=== PATIENT | male | born 1985 | race Caucasian/White ===

== ENCOUNTER 2017-06-02 21:25 | Emergency (ER) | payer OTHER ==
[~2017-06-02] VITALS: Ht 162.6 cm; Wt 89.5 kg
[2017-06-02 21:30] VITALS: Ht 162.6 cm; Wt 89.5 kg
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
--- NOTE | 2017-06-03 00:55 | RADRPT ---
PROCEDURE: Left hand x-ray CLINICAL INDICATION: Left hand pain. Reference marker is directed towards the distal left ulna. TECHNIQUE: AP, lateral and oblique views of the left hand were obtained. COMPARISON: None FINDINGS: There is normal mineralization. No acute fracture or dislocation is seen. There are no significant degenerative changes. There is no significant soft tissue swelling. IMPRESSION: Normal x-ray of the left hand x-ray . RPTAT: [facility] Physician Jaime Date Time Electronically viewed and signed by Physician Jaime on 06/03/2017 00:54 RS/
[2017-06-03] MEDS ORDERED: IBUP-1542 PO (01:09)
[2017-06-03] MEDS ORDERED: TRAM50TA2 PO (01:09)
[2017-06-03 01:36] VITALS: BP 117/72; PULSE 85; RESP 16
== END 2017-06-03 01:37 | disposition home or self-care (01) ==
LOC: FTE 21:25
DX: M79.642 Pain in left hand (principal); M79.632 Pain in left forearm; Z87.891 Personal history of nicotine dependence
CPT/HCPCS: 73090; 73130; Z7502